=== PATIENT | female | born 1965 | race African-American/Black ===

== ENCOUNTER 2025-06-08 05:10 | Emergency (ER) | payer OTHER ==
[~2025-06-08] VITALS: Ht 157.5 cm; Wt 79.4 kg
[~2025-06-08 05:10] MED LIST: AMLO10TA80 PO; LAM25; PARO-150
[2025-06-08 05:33] VITALS: O2SAT 98
[2025-06-08] MEDS ORDERED: TOPUD PO (06:41)
[2025-06-08] MEDS ORDERED: CLIN-116 PO (06:41)
[2025-06-08] MEDS: TETANUS, DIPHTHERIA, PERTUSSIS VAC/PF 0.5ML (>10YR OLD) IM ONE (06:55)
[2025-06-08] MEDS: ACETAMINOPHEN 325MG TABLET PO ONE (06:55)
[2025-06-08 07:05] VITALS: BP 132/94; PULSE 96; RESP 16; TEMP 36.6; O2SAT 97
== END 2025-06-08 07:07 | disposition home or self-care (01) ==
LOC: ER 05:10
DX: S61.052A Open bite of left thumb without damage to nail, initial encounter (principal); E11.9 Type 2 diabetes mellitus without complications; I10 Essential (primary) hypertension; Z88.0 Allergy status to penicillin; Z88.8 Allergy status to other drugs, medicaments and biological substances; Z90.710 Acquired absence of both cervix and uterus; Y04.1XXA Assault by human bite, initial encounter; Y93.89 Activity, other specified; Y92.89 Other specified places as the place of occurrence of the external cause; Y99.8 Other external cause status
CPT/HCPCS: 73140; 90715; 90471; 99283; Z7610